=== PATIENT | female | born 1970 | race African-American/Black ===

== ENCOUNTER 2020-05-09 22:36 | Observation (INO) | payer OTHER ==
--- OUTSIDE RECORDS SUMMARY | 2020-05-09 23:05 | XMS ---
:1970 Author Organization [facility] Support Name Relationship Address Phone [employer] Unavailable [address] [place] [address] CHRIS COLÓN MOTHER [address] [place] [address] Re-disclosure Warning The records that you are about to access may contain information from federally- assisted alcohol or drug abuse programs. If such information is present, then the following federally mandated warning applies: This information has been disclosed to you from records protected by federal confidentiality rules (42 CFR part 2). The federal rules prohibit you from making any further disclosure of this information unless further disclosure is expressly permitted by the written consent of the person to whom it pertains or as otherwise permitted by 42 CFR part 2. A general authorization for the release of medical or other information is NOT sufficient for this purpose. The Federal rules restrict any use of the information to criminally investigate or prosecute any alcohol or drug abuse patient.The records that you are about to access may contain highly sensitive health information, the redisclosure of which is protected by Article 27-F of the [facility] Public Health law. If you continue you may haveaccess to information: Regarding HIV / AIDS; Provided by facilities licensed or operated by the [facility] Office of Mental Health; or Provided by the [facility] Office for People With Developmental Disabilities. If such information is present, then the following [facility] mandated warning applies: This information has been disclosed to you from confidential records which are protected by state law. State law prohibits you from making any further disclosure of this information without the specific written consent of the person to whom it pertains, or as otherwise permitted by law. Any unauthorized further disclosure in violation of state law may result in a fine or nursing home sentence or both. A general authorization for the release of medical or other information is NOT sufficient authorization for further disclosure. Insurance Providers Payer name Policy type Policy ID Covered Covered republican's Policy P anne / Coverage republican ID relationship to [employer] Inf ormation type zay[employer] HEALTH [id number] FIRST
--- NOTE | 2020-05-09 23:10 | PDOC ---
History of Present Illness - General Chief Complaint: Chest Pain Stated Complaint: CHEST PAIN Time Seen by Provider: 05/09/20 23:10 - History of Present Illness Initial Comments: HPI: 49yo F with PMH of DM, HLD presenting with chest pain, palpitations, and shortness of breath since last night. Patient describes the pain as "throbbing." It is constant and non-radiating. Patient endorses associated shortness of breath, but no nausea, vomiting, or diaphoresis. Her symptoms worsen with exertion such as when she goes up some stairs. Has felt this way intermittently x 1 year. No personal or family history of OH. Nonsmoker. Was evaluated with a holter monitor in December 2019 and was started on metoprolol which she has not been taking (believing it made her palpitations before). Patient is not sure why she was started on this medication, but it was possibly for tachycardia. Denies syncope or fall. No hemoptysis, no recent surgical history, no recent immobilization, no hormone use, no history of DVT or PE. Denies fever or chills. PCP: Dr. Nereyda Evans Cardio: Dr. Maloney ([facility] with [facility]) ROS: Constitutional: no fever, no chills HEENT: no throat pain, no dysphagia Cardiovascular: +chest pain, +palpitations Respiratory: no cough, +shortness of breath Gastrointestinal: no abdominal pain, no nausea Genitourinary: no dysuria, no hematuria Musculoskeletal: no myalgia, no arthralgia Skin: no rash, no itching Neurologic: no headache, no weakness Psych: no agitation, no anxiety PE: General: Awake, alert, and fully oriented, in no acute distress Head: No signs of trauma Eyes: EOMI, sclera anicteric ENT: Moist mucus membranes Neck: Normal ROM, supple Lungs: Lungs clear, Normal breath sounds Cardio: Regular rhythm, S1 and S2 present Abdomen: Soft, nontender Extremities: Normal range of motion, Distal pulses present, No calf tenderness Skin: Warm, Dry, normal turgor Neurologic: Cranial nerves II through XII grossly intact. Normal speech ED Course/MDM: DDX including but not limited to COVID-19, ACS, PE, PNA, anemia, metabolic derangement Labs, EKG, CXR EKG: rate 100, QTc 433, NSR, flattened twaves in V5-V6, no prior EKGs available for comparison 05/09/20 23:10 CBC WBC 8.3 K/mm3 (4.0-10.0) 05/09/20 23:36 RBC 4.90 M/mm3 (3.60-5.2) 05/09/20 23:36 Hgb 14.5 GM/dL (10.7-15.3) 05/09/20 23:36 Hct 42.6 % (32.4-45.2) 05/09/20 23:36 MCV 86.9 fl (80-96) 05/09/20 23:36 MCH 29.5 pg (25.7-33.7) 05/09/20 23:36 MCHC 33.9 g/dl (32.0-36.0) 05/09/20 23:36 RDW 13.6 % (11.6-15.6) 05/09/20 23:36 Plt Count 251 K/MM3 (134-434) 05/09/20 23:36 MPV 10.0 fl (7.5-11.1) 05/09/20 23:36 Absolute Neuts (auto) 4.3 K/mm3 (1.5-8.0) 05/09/20 23:36 Neutrophils % 51.7 % (42.8-82.8) 05/09/20 23:36 Lymphocytes % 39.2 % (8-40) 05/09/20 23:36 Monocytes % 8.1 % (3.8-10.2) 05/09/20 23:36 Eosinophils % 0.2 % (0-4.5) 05/09/20 23:36 Basophils % 0.8 % (0-2.0) 05/09/20 23:36 Nucleated RBC % 0 % (0-0) 05/09/20 23:36 No leukocytosis or anemia CMP Sodium 138 mmol/L (136-145) 05/09/20 23:50 Potassium 4.1 mmol/L (3.5-5.1) 05/09/20 23:50 Chloride 104 mmol/L (98-107) 05/09/20 23:50 Carbon Dioxide 22 mmol/L (21-32) 05/09/20 23:50 Anion Gap 12 MMOL/L (8-16) 05/09/20 23:50 BUN 16.0 mg/dL (7-18) 05/09/20 23:50 Creatinine 0.9 mg/dL (0.55-1.3) 05/09/20 23:50 Est GFR (CKD-EPI)AfAm 87.63 05/09/20 23:50 Est GFR (CKD-EPI)NonAf 75.61 05/09/20 23:50 Random Glucose 226 mg/dL (74-106) H 05/09/20 23:50 Calcium 9.7 mg/dL (8.5-10.1) 05/09/20 23:50 Total Bilirubin 0.8 mg/dL (0.2-1) 05/09/20 23:50 AST 37 U/L (15-37) 05/09/20 23:50 ALT 46 U/L (13-61) 05/09/20 23:50 Alkaline Phosphatase 92 U/L (45-117) 05/09/20 23:50 Creatine Kinase 80 U/L (26-192) 05/09/20 23:50 Troponin I < 0.02 ng/ml (0.00-0.05) 05/09/20 23:50 Total Protein 7.6 g/dl (6.4-8.2) 05/09/20 23:50 Albumin 3.9 g/dl (3.4-5.0) 05/09/20 23:50 Electrolytes unremarkable Normal Cr No transaminitis Tpn undetectable CXR unremarkable, my impression 05/10/20 01:28 Plan for admission; observation is appropriate as patient with suspected cardiac ischemia with nondiagnostic initial evaluation requiring further immediate ev aluation such as stress testing, imaging, and repeat laboratory testing to clarify diagnosis Discussed case with Dr. Story who accepted patient for admission under Dr. Valentino 05/10/20 02:19 Past History - Medical History Allergies/Adverse Reactions: Allergies Allergy/AdvReac Type Severity Reaction Status Date / Time No Known Allergies Allergy Verified 05/09/20 22:46 Cardiac Disorders: Yes (Rapid heart rate) COPD: No Diabetes: Yes HTN: Yes Hypercholesterolemia: Yes - Reproductive History Is Patient Now?: No - Psycho-Social/Smoking History Smoking History: Never smoked - Substance Abuse Hx (Audit-C & DAST Scrn) How often the patient has a drink containing alcohol: Never Score: In Men: 4 or > Positive; In Women: 3 or > Positive: 0 Screen Result (Pos requires Nsg. Audit-10AR): Negative *Physical Exam - Vital Signs Last Vital Signs Temp Pulse Resp BP Pulse Ox 98.7 F 110 H 20 131/89 98 05/09/20 22:40 05/09/20 22:40 05/09/20 22:40 05/09/20 22:40 05/09/20 22:40 Heart Score/ECG Review - History History: Moderately suspicious - Electrocardiogram EKG: Non specific repolarization disturbance - Age Age: 45-65 - Risk Factors Risk Factors Heart Score: Yes Hx Hypercholesterolemia, Yes Hx Diabetes Based on the list above the patient has:: 1-2 risk factors - Troponin Troponin: </= normal limit - Score Heart Score - Total: 4 ED Treatment Course - LABORATORY CBC & Chemistry Diagram: 05/09/20 23:36 05/09/20 23:50 Discharge - Discharge Information Problems reviewed: Yes Clinical Impression/Diagnosis: Chest pain Qualifiers: Chest pain type: unspecified Qualified Code(s): R07.9 - Chest pain, unspecified Condition: Guarded - Admission Yes - Follow up/Referral - Patient Discharge Instructions - Post Discharge Activity
--- NOTE | 2020-05-09 23:14 | PDOC ---
Attending Attestation - Resident Resident Name: Rachel Quintero - ED Attending Attestation I have performed the following: I have examined & evaluated the patient, The case was reviewed & discussed with the resident, I agree w/resident's findings & plan - HPI HPI: 05/09/20 23:46 see resident hpi - Physicial Exam PE: 05/09/20 23:46 see resident exam - Medical Decision Making 05/09/20 23:47 49-year-old female with palpitations and chest pressure intermittently over several months now becoming more steady and worse with exertion Patient does have a history of diabetes and hyperlipidemia Plan for EKG labs chest x-ray pending d-dimer and troponin we will plan for observation admission due to cardiac risk factors Discharge - Discharge Information Problems reviewed: Yes Clinical Impression/Diagnosis: Chest pain - Follow up/Referral Referrals: ON STAFF,NOT [Primary Care Provider] - - Patient Discharge Instructions - Post Discharge Activity
[2020-05-09] MEDS ORDERED: ACETAMINOPHEN 325 MG TABLET (FP) PO ONE (23:37)
[2020-05-09] MEDS ORDERED: NITROGLYCERIN SUBLINGUAL 1/200 0.3 MG BTL SL ONE (23:37)
[2020-05-09] MEDS ORDERED: ACETAMINOPHEN 325 MG TABLET (FP) ONE (23:45)
[2020-05-10 00:32] LABS: BASO % 0.8 % (0-2.0); EOS % 0.2 % (0-4.5); HEMATOCRIT 42.6 % (32.4-45.2); HEMOGLOBIN 14.5 GM/dL (10.7-15.3); LYMPH % 39.2 % (8-40); MCH 29.5 pg (25.7-33.7); MCHC 33.9 g/dl (32.0-36.0); MEAN CELL VOLUME 86.9 fl (80-96); MONO % 8.1 % (3.8-10.2); NEUT % 51.7 % (42.8-82.8); PLATELET COUNT 251 K/MM3 (134-434); RDW 13.6 % (11.6-15.6); WHITE BLOOD COUNT 8.3 K/mm3 (4.0-10.0)
[2020-05-10 00:57] LABS: ALBUMIN 3.9 g/dl (3.4-5.0); ALK PHOS 92 U/L (45-117); ANION GAP 12 MMOL/L (8-16); BILIRUBIN,TOTAL 0.8 mg/dL (0.2-1); CALCIUM 9.7 mg/dL (8.5-10.1); CHLORIDE 104 mmol/L (98-107); CO2 22 mmol/L (21-32); CREATININE 0.9 mg/dL (0.55-1.3); GLUCOSE,RANDOM 226 mg/dL (74-106); POTASSIUM 4.1 mmol/L (3.5-5.1); SGOT/AST 37 U/L (15-37); SGPT/ALT 46 U/L (13-61); SODIUM 138 mmol/L (136-145); TOT PROT 7.6 g/dl (6.4-8.2)
--- NOTE | 2020-05-10 01:51 | PN ---
Teaching Attending Note Name of Resident: Onofre Story ATTENDING PHYSICIAN STATEMENT I saw and evaluated the patient. I reviewed the resident's note and discussed the case with the resident. I agree with the resident's findings and plan as documented. SUBJECTIVE: Patient is a 49 year old woman with a PMH of NIDDM, HLD and Obesity who presents to the ER with chest pain, palpitations, and shortness of breath since last night. Patient describes the pain as throbbing, constant and non-radiating. There is associated shortness of breath, but no nausea, vomiting, or diaphoresis. Her symptoms worsen with exertion such as when she goes up some stairs. Has felt this way intermittently for 1 year. Had a holter monitor in December 2019 and was started on metoprolol which she has not been taking. Patient is not sure why she was started on Metoprolol. Denies syncope, fall, hemoptysis, recent surgical history, prolonged immobilization, hormone use or history of VTE. Denies fever, chills, diarrhea, constipation, dysuria, frequency, urgency, melena, hematochezia or hematuria. Denies alcohol, tobacco or illicit drug use. No sick contacts or recent travels. Family history of NC in grandfather and aunt, DM in father and HTN in mother. OBJECTIVE: Alert Vital Signs Period Temp Pulse Resp BP Sys/Lomas Pulse Ox Last 24 Hr 98.7 F 98-110 20-20 100-131/70-89 98-98 HEENT: No Jaundice, eye redness or discharge, PERRLA, EOMI. Normocephalic, atraumatic. External ears are normal and hearing is grossly intact. No nasal discharge. Neck: Supple, nontender. No palpable adenopathy or thyromegaly. No JVD Chest: Good effort. Clear to auscultation and percussion. Heart: Regular. No S3, rub or murmur Abdomen: Not distended, soft, nontender and no HSM. No rebound or guarding. Normal bowel sounds. Ext: Peripheral pulses intact. No leg edema. Skin: Warm and dry. No petechiae, rash or ecchymosis. Neuro: Alert. Oriented x3. CN 2-12 grossly intact. Sensation grossly intact in all four extremities and DTR are symmetric. Psych: Appropriate mood and affect. Good insight. Abnormal Lab Results 05/09/20 23:50 Random Glucose 226 H Current Medications Generic Name Dose Route Start Last Admin Trade Name Michelle PRN Reason Stop Dose Admin Enoxaparin Sodium 40 mg 05/10/20 10:00 Lovenox - SQ DAILY [facility] Insulin Aspart 0 vial 05/10/20 07:00 Novolog Vial Sliding Scale - SQ ACHS [facility] Protocol ASSESSMENT AND PLAN: 1. Chest pain - No acute abnormality on CXR. ER staff prescribed Tylenol and SL NTG for the patient. EKG shows NSR at 100/minute and QTc 433, T wave inversion in aVL with no ischemic ST changes. No old EKG available for comparison. Initial troponin is negative. Viral testing for COVID-19 ordered and patient placed on airborne, droplet and contact isolation. Will admit to telemetry, trend troponin, repeat EKG, get ECHO, TSH, HbA1c, fasting lipids and consult Cardiology. Will continue comprehensive care for all of patients comorbid conditions. 2. DM For now, we will hold the home diabetes drugs and implement sliding scale insulin regimen. Provide comprehensive diabetes care with patient teaching and counseling about the importance of adherence to prescribed diabetes regimen, euglycemia, eye care and foot care. 3. Obesity Counseled on the risks associated with obesity. Will provide patient all the necessary assistance, counseling and positive reinforcement to facilitate weight loss. Consult acrobatic dancer. 4. DVT prophylaxis - Lovenox 40 mg SQ q 24 hours. 5. Advance directives - Full code
--- OUTSIDE RECORDS SUMMARY | 2020-05-10 02:24 | XMS ---
:1970 Author Organization [facility] Support Name Relationship Address Phone [employer] Unavailable [address] [phone] [place] [address] CHRIS COLÓN MOTHER [address] [place] [address] Re-disclosure Warning The records that you are [...] is protected by Article 27-F of the [facility] Public Health law. If you continue you may haveaccess to information: Regarding HIV / AIDS; Provided by facilities licensed or operated by the [facility] Office of Mental Health; or Provided by the [facility] Office for People With Developmental Disabilities. If such information is present, then the following [facility] mandated warning applies: This information has been [...] law may result in a fine or half-way sentence or both. A general authorization for the release of medical or other information is NOT sufficient authorization for further disclosure. Insurance Providers Payer name Policy type Policy ID Covered Covered constitution party's Policy P anne / Coverage constitution party ID relationship to [employer] Inf ormation type [employer] HEALTH [id number] FIRST
--- NOTE | 2020-05-10 04:32 | HP ---
CHIEF COMPLAINT: chest pain PCP: HISTORY OF PRESENT ILLNESS: 49F w/ pmh of NIDM, HLD BIBA to [facility] for complaint of sticking pain, felt like squeezing pressure in the deep chest pain with associated palpitaitons. Had sensation after bible study at 8pm. Chest pain improved after acetaminophen administration in the ED. Has had palpitations in the past. For the palpitations, had outpt cardiology evaluation for the first time this past November-December w/ Dr Francis([facility]). Thinks her Echo had an abnormality; got a Holter but doesn't recall those results. Was prescribed metoprolol tartrate, but stopped taking d/t the belief that palpitations go worse. Pt has been having chest pressure, SOB, and feeling winded this past year with exertional activities. 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 Resolution of symptoms after 20mins of rest. Pior to 2016, pt used to regularly exercise in the gym, walking on the elliptical machines. Thinks her HbA1c was 10.4 in October 2019. Sometimes has acid reflux, bloating burning sensation a few mins after eating; sometimes a bitter taste in the throat. Will sleep with two pillows and mary bear; will have sensation cant breathe; might have sleep apnea(was told by ex- that she stopped breathing). Denies h/o [place], stroke. ER course was notable for: -Tmax 98.7F, HR 110 -->98, BP 131/89 -HEART 4 -EKG: rate 100, QTc 433, NSR, flattened twaves in V5-V6 -acetaminophen 975mg Recent Travel: denies PAST MEDICAL HISTORY: as above PAST SURGICAL HISTORY: myometocmy, then eventual hysterectomy(2016) Social History: Smoking: denies Alcohol: tried beer once or twice Drugs: denies Allergies No Known Allergies Allergy (Verified 05/09/20 22:46) HOME MEDICATIONS: REVIEW OF SYSTEMS CONSTITUTIONAL: Absent: fever, chills, diaphoresis, generalized weakness, malaise, loss of appetite, weight change HEENT: Absent: rhinorrhea, nasal congestion, throat pain, throat swelling, difficulty swallowing, mouth swelling, ear pain, eye pain, visual changes CARDIOVASCULAR: chest pain, palpitations, Absent: syncope, irregular heart rate, lightheadedness, peripheral edema RESPIRATORY: dyspnea with exertion, orthopnea, Absent: cough, shortness of breath,wheezing, stridor, hemoptysis GASTROINTESTINAL: Absent: abdominal pain, abdominal distension, nausea, vomiting, diarrhea, constipation, melena, hematochezia GENITOURINARY: Absent: dysuria, frequency, urgency, hesitancy, hematuria, flank pain, genital pain MUSCULOSKELETAL: Absent: myalgia, arthralgia, joint swelling, back pain, neck pain SKIN: Absent: rash, itching, pallor HEMATOLOGIC/IMMUNOLOGIC: Absent: easy bleeding, easy bruising, lymphadenopathy, frequent infections ENDOCRINE: Absent: unexplained weight gain, unexplained weight loss, heat intolerance, cold intolerance NEUROLOGIC: Absent: headache, focal weakness or paresthesias, dizziness, unsteady gait, seizure, mental status changes, bladder or bowel incontinence PSYCHIATRIC: Absent: anxiety, depression, suicidal or homicidal ideation, hallucinations. PHYSICAL EXAMINATION Vital Signs - 24 hr 05/09/20 05/10/20 22:40 00:01 Temperature 98.7 F Pulse Rate 110 H Pulse Rate [ 98 H Apical] Respiratory 20 20 Rate Blood Pressure 131/89 Blood Pressure 100/70 [Left Arm] O2 Sat by Pulse 98 98 Oximetry (%) GENERAL: Awake, alert, and fully oriented, in no acute distress. Obese HEAD: NC/AT EYES: anicteric, conjunctiva clear. No lid lag. EARS, NOSE, THROAT: Ears normal, nares patent, oropharynx clear without exudates. Moist mucous membranes. NECK: Normal range of motion, supple without lymphadenopathy, JVD, or masses. LUNGS: Breath sounds equal, clear to auscultation bilaterally. No wheezes, and no crackles. HEART: elevated heart rate, normal rhythm, normal S1 and S2 without murmur, rub or gallop. ABDOMEN: Soft, nontender, not distended, no guarding, no rebound MUSCULOSKELETAL: Normal range of motion at all joints. UPPER EXTREMITIES: 2+ pulses, warm, well-perfused. No cyanosis. No clubbing. No peripheral edema. LOWER EXTREMITIES: 2+ pulses, warm, well-perfused. No calf tenderness. No peripheral edema. NEUROLOGICAL: Cranial nerves II-XII intact. Normal speech. SKIN: Warm, dry, normal turgor, no rashes or lesions noted, normal capillary refill. Laboratory Results - last 24 hr 0905/09/20 05/10/20 23:36 23:50 00:00 WBC 8.3 RBC 4.90 Hgb 14.5 Hct 42.6 MCV 86.9 MCH 29.5 MCHC 33.9 RDW 13.6 Plt Count 251 MPV 10.0 Absolute Neuts (auto) 4.3 Neutrophils % 51.7 Lymphocytes % 39.2 Monocytes % 8.1 Eosinophils % 0.2 Basophils % 0.8 Nucleated RBC % 0 D-Dimer 318 Sodium 138 Potassium 4.1 Chloride 104 Carbon Dioxide 22 Anion Gap 12 BUN 16.0 Creatinine 0.9 Est GFR (CKD-EPI)AfAm 87.63 Est GFR (CKD-EPI)NonAf 75.61 Random Glucose 226 H Calcium 9.7 Total Bilirubin 0.8 AST 37 ALT 46 Alkaline Phosphatase 92 Creatine Kinase 80 Troponin I < 0.02 Total Protein 7.6 Albumin 3.9 ASSESSMENT/PLAN: 49F w/ pmh of NIDM, HLD BIBA to [facility] for complaint of sticking pain, felt like squeezing pressure in the deep chest pain with associated palpitations. Pain improved after acetaminophen. EKG with no ST abnormalities. No prior EKG for comparison. Troponin neg. HEART 4. ED wanted admission to Tele-Obs for ACS r/o. #chest pain, ACS r/o > HEART 4 > EKG: no ST abnormalities, QTc 433 > troponin neg x1 --fu 2nd and 3rd troponin - Cardiology Consult(Kyle): --recs pending --echo, TBD by cardio - fu TSH, lipid panel, TSH #chronic HLD -cw home simvastatin #chronic NIDDM -ISS FEN - no IVF - NPO, in case of stress test DVT PPX - lovenox Family Medical History Family History: As Documented Family Hx Cardiac Disorders: Mother (HTN) Family Hx Coronary Artery Disease: Grandfather (paternal) ([place]) Family Hx Diabetes: Father Visit type - Emergency Visit Emergency Visit: Yes ED Registration Date: 05/10/20 Care time: The patient presented to the Emergency Department on the above date and was hospitalized for further evaluation of their emergent condition. - New Patient This patient is new to me today: Yes Date on this admission: 05/10/20 - Critical Care Critical Care patient: No ATTENDING PHYSICIAN STATEMENT I saw and evaluated the patient. I reviewed the resident's note and discussed the case with the resident. I agree with the resident's findings and plan as documented. SUBJECTIVE: OBJECTIVE: ASSESSMENT AND PLAN:
[2020-05-10 08:04] LABS: ANION GAP 7 MMOL/L (8-16); CALCIUM 9.5 mg/dL (8.5-10.1); CHLORIDE 104 mmol/L (98-107); CHOLESTEROL 122 mg/dL (50-200); CO2 27 mmol/L (21-32); CREATININE 0.8 mg/dL (0.55-1.3); GLUCOSE,RANDOM 186 mg/dL (74-106); HDL CHOLESTEROL 40 mg/dL (40-60); LDL CHOLESTEROL (ONLY SJRH) 64 mg/dL (5-100); MAGNESIUM 1.7 mg/dL (1.8-2.4); PHOSPHOROUS 4.2 mg/dL (2.5-4.9); SODIUM 138 mmol/L (136-145); TRIGLYCERIDES 170 mg/dL (0-150)
[2020-05-10] MEDS: INSULIN SLIDING SCALE (NOVOLOG) 1 VIAL SQ SCH ×4 (08:12→21:34)
--- NOTE | 2020-05-10 09:03 | EKG ---
Test Reason : Blood Pressure : / mmHG Vent. Rate : 100 BPM Atrial Rate : 100 BPM P-R Int : 138 ms QRS Dur : 084 ms QT Int : 336 ms P-R-T Axes : 063 012 070 degrees QTc Int : 433 ms NORMAL SINUS RHYTHM NONSPECIFIC T WAVE ABNORMALITY ABNORMAL ECG NO PREVIOUS ECGS AVAILABLE Confirmed by MD NICHO, MURRAY ([id number]) on 05/10/2020 9:03:23 AM Referred By: Confirmed By:MURRAY TORRE MD
--- NOTE | 2020-05-10 09:40 | CON.CARD ---
Consult Consult Specialty:: Cardiology Referred by:: Dr. Valentino Reason for Consultation:: Chest pain, ACS - History of Present Illness Chief Complaint: Chest pain and palpitation History of Present Illness: 49 year-old woman with a PMHx of DM-II and hyperlipidemia presented to ED 05/09/20 with chest pain. The patient complains of sticking pain, felt like squeezing pressure in the deep chest pain with associated palpitaitons. Chest pain improved after acetaminophen administration in the ED. She was seen by Dr. Maloney in November 2019 for evaluation of palpitation. Her echo and extended holter monitor were unremarkable (see below). She was prescribed metoprolol tartrate, but self discontined. Pt has been having chest pressure, SOB, and feeling winded this past year with exertional activities. 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 Resolution of symptoms after 20mins of rest. [place] ruled out. ECG 05/09/20 showed sinus rhythm at 100 BPM. Normal axis. Minor non-specific T wave abnormalities of lateral leads. CXR 05/09/20 no acute pathology. Previous cardiac tests at [facility]: Echo 12/21/2019: Normal LV size with DUST. Normal wall motion and systolic function. LVEF = 60-65%. Normal RV. Normal LA and RA in size. No significant valvular abnormalities. Extended Holter Monitor 12/29/19 to 01/02/20: Sinus rhythm with an average HR of 94 BPM (74-138 BPM) Occasional single VPCs and rare APCs. No bradycardia or pauses. - History Source History Provided By: Patient, Medical Record Limitations to Obtaining History: No Limitations - Past Medical History Cardio/Vascular: Yes: Hyperlipdemia ...LMP: 05/09/16 ...: No Endocrine: Yes: Diabetes Mellitus - Smoking History Smoking history: Never smoked Home Medications - Allergies Allergies/Adverse Reactions: Allergies Allergy/AdvReac Type Severity Reaction Status Date / Time No Known Allergies Allergy Verified 05/09/20 22:46 - Home Medications Home Medications: Ambulatory Orders Aspirin 81 mg PO DAILY 05/10/20 Atorvastatin Ca [Lipitor] 20 mg PO HS 05/10/20 Liraglutide [Victoza -] 1.8 mg SQ DAILY@0700 05/10/20 Metformin HCl [Glucophage] 1,000 mg PO BID 05/10/20 Family Medical History Family Hx Cardiac Disorders: Mother (HTN) Family Hx Coronary Artery Disease: Grandfather (paternal) ([place]) Family Hx Diabetes: Father Review of Systems - Review of Systems Constitutional: reports: No Symptoms Eyes: reports: No Symptoms HENT: reports: No Symptoms Neck: reports: No Symptoms Cardiovascular: reports: Chest Pain, Palpitations Respiratory: reports: No Symptoms Gastrointestinal: reports: No Symptoms Genitourinary: reports: No Symptoms Breasts: reports: No Symptoms Reported Musculoskeletal: reports: No Symptoms Integumentary: reports: No Symptoms Neurological: reports: No Symptoms Endocrine: reports: No Symptoms Hematology/Lymphatic: reports: No Symptoms Psychiatric: reports: No Symptoms Vital Signs: Vital Signs Temperature 97.3 F L 05/10/20 06:37 Pulse Rate 80 05/10/20 09:00 Respiratory Rate 18 05/10/20 09:00 Blood Pressure 123/81 05/10/20 09:00 O2 Sat by Pulse Oximetry (%) 97 05/10/20 09:00 General: Well developed. Obese. No acute distress. Head: Normocephalic. Atraumatic, Eyes: PERRLA, EOMI. Sclerae anicteric. Conjunctivae clear. Neck: Supple. No JVD. No bruits. Heart: Normal S1, S2: Regular rhythm and rate. No murmur. No gallop or rub. Lungs: Symmetrical air entry. Clear to auscultation. No crackles. No wheezing or rhonchi. Abdomen: Soft. Bowel sound positive. Non tender. No masses. Extremities: No edema. No clubbing or cyanosis. PD 2+, equal bilaterally. Neuro: Intact, no focal findings. AAO X3 - Other Data Labs, Other Data: CBC, BMP 05/09/20 23:36 05/10/20 06:52 Troponin, BNP 05/09/20 05/10/20 23:50 06:52 Troponin I < 0.02 < 0.02 Troponin, BNP 05/09/20 05/10/20 23:50 06:52 Troponin I < 0.02 < 0.02 Assessment/Plan 49 year-old woman with a PMHx of DM-II and hyperlipidemia presented to ED 05/09/20 with chest pain. The patient complains of sticking pain, felt like squeezing pressure in the deep chest pain with associated palpitaitons. Chest pain improved after acetaminophen administration in the ED. [place] ruled out. ECG 05/09/20 showed sinus rhythm at 100 BPM. Normal axis. Minor non-specific T wave abnormalities of lateral leads. CXR 05/09/20 no acute pathology. 1) New onset, predominantly exertional angina with risk factors of CAD. Intermediate likelihood of significant CAD. Treadmill exercise nuclear stress test recommended for further risk stratification. 2) Palpitation with elevated resting heart rate. Had unremarkable extended holter monitor in December 2019. Start metoprolol succinate 50 mg daily for symptom of palpitation. We will follow the patient with you.
[2020-05-10] MEDS ORDERED: ENOXAPARIN NA (PORCINE) 40 MG/0.4 ML DISP.SYRIN SQ SCH (10:00)
[2020-05-10] MEDS: ASPIRIN 81 MG CHEWABLE TABLETS PO SCH (11:15)
--- NOTE | 2020-05-10 11:28 | ECHO ---
Name: BRAEDENELIU Exam:Adult Echocardiogram Study Date: 05/10/2020 09:10 AM Age: 49 yrs Reason For Study: Tachycardia, Chest Pressure Height: 62 in Weight: 218 lb BSA: 2.0 m2 MMode/2D Measurements & Calculations IVSd: 0.99 cm Ao root diam: 3.1 cm LVIDd: 3.7 cm LA dimension: 2.1 cm LVIDs: 2.4 cm ACS: 1.8 cm LVPWd: 1.0 cm EDV(Teich): 59.0 ml LVOT diam: 1.9 cm ESV(Teich): 20.4 ml LAV (MOD-bp): 23.0 ml TAPSE: 2.1 cm RV S Wilfredo: 11.1 cm/sec Doppler Measurements & Calculations MV E max wilfredo: 66.9 cm/sec Ao V2 max: 124.9 cm/sec MV A max wilfredo: 69.1 cm/sec Ao max P.2 mmHg MV E/A: 0.97 Ao V2 mean: 84.6 cm/sec MV dec time: 0.20 sec Ao mean P.2 mmHg Ao V2 VTI: 22.0 cm BIRGIT(I,D): 3.1 cm2 BIRGIT(V,D): 2.9 cm2 LV V1 max P.0 mmHg SV(LVOT): 67.9 ml LV V1 mean P.7 mmHg LV V1 max: 122.3 cm/sec LV V1 mean: 74.0 cm/sec LV V1 VTI: 22.9 cm PA V2 max: 84.2 cm/sec Med Peak E' Wilfredo: 5.6 cm/sec PA max P.8 mmHg Med E/e': 12.0 PA acc slope: 441.2 cm/sec2 Lat Peak E' Wilfredo: 6.7 cm/sec PA acc time: 0.12 sec Lat E/e': 9.9 PA pr(Accel): 25.1 mmHg Tech Comments TDS due to body habitus. Procedure The study was technically difficult with many images being suboptimal in quality. Left Ventricle The left ventricle is grossly normal size. Left ventricular systolic function is normal. Ejection Fra ction = 65%. The transmitral spectral Doppler flow pattern is suggestive of impaired LV relaxation. Right Ventricle The right ventricle is not well visualized. Atria Normal left and right atrial size and function. Mitral Valve The mitral valve is grossly normal. Tricuspid Valve The tricuspid valve is not well visualized. There was insufficient TR detected to calculate RV systol ic pressure. Aortic Valve The aortic valve is not well visualized. No hemodynamically significant valvular aortic stenosis. Pulmonic Valve The pulmonic valve is not well visualized. Great Vessels The aortic root is not well visualized. Pericardium/Pleura There is no pericardial effusion. Interpretation Summary The study was technically difficult with many images being suboptimal in quality. The left ventricle is grossly normal size. Left ventricular systolic function is normal. Ejection Fra ction = 65%. The right ventricle is not well visualized. Normal left and right atrial size and function. The aortic valve is not well visualized. No hemodynamically significant valvular aortic stenosis. The mitral valve is grossly normal. MD Vicky Forrest 05/10/2020 11:27 AM
[2020-05-10] MEDS ORDERED: ASPIRIN 81 MG CHEWABLE TABLETS ONE (11:31)
[2020-05-10] MEDS ORDERED: ENOXAPARIN NA (PORCINE) 40 MG/0.4 ML DISP.SYRIN SQ ONE (11:31)
[2020-05-10 14:31] VITALS: BMI 39.2
--- NOTE | 2020-05-10 15:12 | PN ---
Physical Exam: SUBJECTIVE: Patient seen and examined at bedside. No acute events reported overnight. OBJECTIVE: Vital Signs Period Temp Pulse Resp BP Sys/Lomas Pulse Ox Last 24 Hr 97.3 F-98.7 F 80-110 17-20 100-131/63-89 97-100 GENERAL: AAOx3, in no acute distress HEENT: NCAT, PERRLA, EOMI, sclera anicteric, conjunctiva clear, oropharynx clear w/o exudates. MMM. NECK: Normal ROM, supple, no lymphadenopathy, JVD, or masses LUNGS: CTABL no wheezes/ rhonchi/ rales. No distress, speaks in full sentences. No increased work of breathing. HEART: RRR, normal S1 S2, no M/R/G, peripheral pulses 2+ and equal b/l ABDOMEN: Soft, NTND, + BS. No guarding or rebound. No hepatomegaly or splenomegaly. MSK: ROM WNL EXTREMITIES: Normal inspection. No peripheral edema. No clubbing or cyanosis. NEUROLOGICAL: CN II-XII intact. Normal speech, normal gait, no focal sensorimotor deficits. SKIN: Warm, Dry, normal turgor, no rashes or lesions noted Laboratory Results - last 24 hr CBC, BMP 05/09/20 23:36 05/10/20 06:52 05/09/20 05/09/20 05/10/20 23:36 23:50 00:00 WBC 8.3 RBC 4.90 Hgb 14.5 Hct 42.6 MCV 86.9 MCH 29.5 MCHC 33.9 RDW 13.6 Plt Count 251 MPV 10.0 Absolute Neuts (auto) 4.3 Neutrophils % 51.7 Lymphocytes % 39.2 Monocytes % 8.1 Eosinophils % 0.2 Basophils % 0.8 Nucleated RBC % 0 D-Dimer 318 Sodium 138 Potassium 4.1 Chloride 104 Carbon Dioxide 22 Anion Gap 12 BUN 16.0 Creatinine 0.9 Est GFR (CKD-EPI)AfAm 87.63 Est GFR (CKD-EPI)NonAf 75.61 POC Glucometer Random Glucose 226 H Calcium 9.7 Phosphorus Magnesium Total Bilirubin 0.8 AST 37 ALT 46 Alkaline Phosphatase 92 Creatine Kinase 80 Troponin I < 0.02 Total Protein 7.6 Albumin 3.9 Triglycerides Cholesterol Total LDL Cholesterol HDL Cholesterol TSH 05/10/20 05/10/20 05/10/20 06:52 07:20 12:40 WBC RBC Hgb Hct MCV MCH MCHC RDW Plt Count MPV Absolute Neuts (auto) Neutrophils % Lymphocytes % Monocytes % Eosinophils % Basophils % Nucleated RBC % D-Dimer Sodium 138 Potassium 4.0 Chloride 104 Carbon Dioxide 27 Anion Gap 7 L BUN 16.0 Creatinine 0.8 Est GFR (CKD-EPI)AfAm 101.04 Est GFR (CKD-EPI)NonAf 87.18 POC Glucometer 179 Random Glucose 186 H Calcium 9.5 Phosphorus 4.2 Magnesium 1.7 L Total Bilirubin AST ALT Alkaline Phosphatase Creatine Kinase 76 Troponin I < 0.02 < 0.02 Total Protein Albumin Triglycerides 170 H Cholesterol 122 Total LDL Cholesterol 64 HDL Cholesterol 40 TSH 4.37 H Active Medications Generic Name Dose Route Start Last Admin Trade Name Freq PRN Reason Stop Dose Admin Aspirin 81 mg 05/10/20 10:00 05/10/20 11:15 Asa - PO 81 mg DAILY LORENZO Administration Atorvastatin Calcium 20 mg 05/10/20 22:00 Lipitor - PO HS LORENZO Enoxaparin Sodium 40 mg 05/10/20 10:00 05/10/20 11:15 Lovenox - SQ 40 mg DAILY LORENZO Administration Insulin Aspart 1 vial 05/10/20 07:00 05/10/20 13:16 Novolog Vial Sliding Scale - SQ 6 units ACHS LORENZO Administration Protocol Metoprolol Succinate 50 mg 05/10/20 12:45 Toprol Xl - PO DAILY [facility] ASSESSMENT/PLAN: 49F w/ PMX of NIDM, HLD BIBA to [facility] for complaint of chest pain that felt like squeezing pressure deep in the chest with associated palpitations. Pain improved after acetaminophen. EKG with no ST abnormalities. Admitted to tele observation for further evaluation of chest pain. #Chest Pain - HEART 4 -EKG: no ST abnormalities, QTc 433 -troponin neg x3 -echo: LV normal in size, LVEF=65%. RV not well visualized. normal LA and RA size/function. Aortic valve not visualized. MV grossly normal. -Cardio Consult: start Metoprolol Succinate 50 mg Daily and nuclear stress test -nuclear stress test tomorrow pending negative COVID test and negative test -continue Aspirin #HLD -c/w home simvastatin #Diabetes Mellitus -ISS w/ BGM #FEN - no IVF -monitor lytes, replete PRN - Diabetic diet; NPO at midnight for stress tomorrow #PPX - DVT: lovenox dispo: continue tele observation Visit type - Emergency Visit Emergency Visit: No - New Patient This patient is new to me today: Yes Date on this admission: 05/10/20 - Critical Care Critical Care patient: No - Discharge Referral Referred to [facility] Med P.C.: No ATTENDING PHYSICIAN STATEMENT I saw and evaluated the patient. I reviewed the resident's note and discussed the case with the resident. I agree with the resident's findings and plan as documented. SUBJECTIVE: OBJECTIVE: ASSESSMENT AND PLAN:
--- NOTE | 2020-05-10 16:54 | PN ---
Teaching Attending Note Name of Resident: Onelia Garcia ATTENDING PHYSICIAN STATEMENT I saw and evaluated the patient. I reviewed the resident's note and discussed the case with the resident. I agree with the resident's findings and plan as documented. SUBJECTIVE: seen at 1 pm No fever or chills. Cp is better . denies SOB . 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, and not sure if a stress test was done or not . palpitation hx for which she dews not remember the diagnosis but she was prescribed metoprolol that she stopped taking after the first week . CP started 2 days ago, was severe yesterday and now better . 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 pain usually resolves with rest for few min . she takes asa daily since she was diagnosed with DM OBJECTIVE: NAD CV: RRR, no MRG Lungs: CTAB Ext : No edema or erythema MS: TTP in mid sternal area ASSESSMENT AND PLAN: 49 y/o lady with h/o DM, and palpitations, who presented with CP 1- CP: prolonged, improved, negative trop, EKG with sinus rhythm. she for sure has sig risk factors. but this prolonged cp might not be ACS. - stress test . - need neg covid and - cont Asa - cont toprol. ( not taking home lopressor ) 2- h/o Dm : start SSI . hold metformin 3- palpitations. cont toprol will try to get records form dr. little office regarding previous cardiac w/u . Unsuccessful today
[2020-05-10] MEDS ORDERED: ATORVASTATIN CA 20 MG TABLET (FP) PO SCH (22:00)
[2020-05-11] MEDS ORDERED: MELATONIN 5 MG TABLETS PO ONE (01:11)
[2020-05-11] MEDS: INSULIN SLIDING SCALE (NOVOLOG) 1 VIAL SQ SCH ×2 (06:16→12:32)
[2020-05-11 07:43] LABS: BASO % 0.8 % (0-2.0); EOS % 1.4 % (0-4.5); HEMATOCRIT 37.5 % (32.4-45.2); HEMOGLOBIN 12.6 GM/dL (10.7-15.3); LYMPH % 53.4 % (8-40); MCH 29.1 pg (25.7-33.7); MCHC 33.6 g/dl (32.0-36.0); MEAN CELL VOLUME 86.5 fl (80-96); MEAN PLT VOLUME 9.4 fl (7.5-11.1); MONO % 9.4 % (3.8-10.2); PLATELET COUNT 213 K/MM3 (134-434); RBC 4.33 M/mm3 (3.60-5.2); RDW 13.7 % (11.6-15.6); WHITE BLOOD COUNT 6.9 K/mm3 (4.0-10.0)
[2020-05-11 08:15] LABS: ANION GAP 7 MMOL/L (8-16); BLOOD UREA NITROGEN 10.1 mg/dL (7-18); CALCIUM 9.4 mg/dL (8.5-10.1); CHLORIDE 104 mmol/L (98-107); CO2 26 mmol/L (21-32); CREATININE 0.6 mg/dL (0.55-1.3); GLUCOSE,RANDOM 185 mg/dL (74-106); POTASSIUM 3.5 mmol/L (3.5-5.1); SODIUM 137 mmol/L (136-145)
[2020-05-11] MEDS: ASPIRIN 81 MG CHEWABLE TABLETS PO SCH (09:27)
--- NOTE | 2020-05-11 14:57 | PN ---
Progress Note, Physician Chief Complaint: The patient appears comfortable at the time of exam. She reports no recurrent chest pain. But she has intermittent palpitation. Telemetry reviewed, it showed sinus rhythm with episodes of sinus tachycardia, up to 120s and frequent single VPCs. History of Present Illness: 49 year-old woman with a PMHx of DM-II and hyperlipidemia presented to ED 05/09/20 with chest pain. The patient complains of sticking pain, felt like squeezing pressure in the deep chest pain with associated palpitaitons. Chest pain improved after acetaminophen administration in the ED. [place] ruled out. ECG 05/09/20 showed sinus rhythm at 100 BPM. Normal axis. Minor non-specific T wave abnormalities of lateral leads. CXR 05/09/20 no acute pathology. Echo 05/10/20: Normal LV size, wall motion and systolic function. LVEF = 65%. RV is not well visualized. Normal LA and RA in size. No significant valvular abnormalities. Nuclear stress stress test 08/10/20 (preliminary) Normal myocardial perfusion an d normal LV systolic function. - Current Medication List Current Medications: Active Medications Aspirin (Asa -) 81 mg PO DAILY [facility] Last Admin: 05/11/20 09:27 Dose: 81 mg Documented by: Atorvastatin Calcium (Lipitor -) 20 mg PO HS [facility] Last Admin: 05/10/20 21:35 Dose: 20 mg Documented by: Insulin Aspart (Novolog Vial Sliding Scale -) 1 vial SQ [facility]; Protocol Last Admin: 05/11/20 12:32 Dose: 6 units Documented by: Metoprolol Succinate (Toprol Xl -) 50 mg PO DAILY [facility] Last Admin: 05/11/20 09:27 Dose: Not Given Documented by: - Objective Vital Signs: Vital Signs Temperature 98.0 F 05/11/20 10:00 Pulse Rate 82 05/11/20 10:00 Respiratory Rate 18 05/11/20 10:00 Blood Pressure 114/65 05/11/20 10:00 O2 Sat by Pulse Oximetry (%) 99 05/11/20 10:00 General: Well developed. Obese. No acute distress. Head: Normocephalic. Atraumatic, Eyes: PERRLA, EOMI. Sclerae anicteric. Conjunctivae clear. Neck: Supple. No JVD. No bruits. Heart: Normal S1, S2: Regular rhythm and rate. No murmur. No gallop or rub. Lungs: Symmetrical air entry. Clear to auscultation. No crackles. No wheezing or rhonchi. Abdomen: Soft. Bowel sound positive. Non tender. No masses. Extremities: No edema. No clubbing or cyanosis. PD 2+, equal bilaterally. Neuro: Intact, no focal findings. AAO X3. Labs: CBC, BMP 05/11/20 06:48 05/11/20 06:48 Assessment/Plan 49 year-old woman with a PMHx of DM-II and hyperlipidemia presented to ED 05/09/20 with chest pain. The patient complains of sticking pain, felt like squeezing pressure in the deep chest pain with associated palpitaitons. Chest pain improved after acetaminophen administration in the ED. [place] ruled out. ECG 05/09/20 showed sinus rhythm at 100 BPM. Normal axis. Minor non-specific T wave abnormalities of lateral leads. CXR 05/09/20 no acute pathology. Echo 05/10/20: Normal LV size, wall motion and systolic function. LVEF = 65%. RV is not well visualized. Normal LA and RA in size. No significant valvular abnormalities. Nuclear stress stress test 08/10/20 (preliminary) Normal myocardial perfusion and normal LV systolic function. 1) New onset, predominantly exertional angina with risk factors of CAD. Nuclear stress test showed no evidence of stress induced myocardial ischemia. 2) Palpitation with elevated resting heart rate and frequent VPCs. Had unremarkable extended holter monitor in December 2019. Would continue metoprolol succinate 50 mg daily. The patient can be discharge from cardiac stand point. Outpatient cardiac follow up for palpitation. Please do not hesitate to call us for reconsult at any time if any further questions or additional issue arises regarding this patient.
[2020-05-11 15:02] VITALS: BP 100/72; PULSE 92; TEMP 98.3
--- NOTE | 2020-05-11 15:24 | PN ---
Teaching Attending Note Name of Resident: Onelia Garcia ATTENDING PHYSICIAN STATEMENT I saw and evaluated the patient. I reviewed the resident's note and discussed the case with the resident. I agree with the resident's findings and plan as documented. SUBJECTIVE: no fever or chills. No CP today, no SOB. OBJECTIVE: NAD CV: RRR, no MRG Lungs: CTAB Ext : No edema or erythema MS: NT in chest wall ASSESSMENT AND PLAN: 49 y/o lady with h/o DM, and palpitations, who presented with CP 1- CP: negative prelim stress test. echo reviewed. cont asa, statin, and BB. 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 A1c 9 form 10.5 as out pt 3- palpitations. cont toprol dc home .
--- NOTE | 2020-05-11 15:31 | DS ---
Physical Exam: SUBJECTIVE: Patient seen and examined at bedside. No acute events reported overnight. OBJECTIVE: Vital Signs Period Temp Pulse Resp BP Sys/Lomas Pulse Ox Last 24 Hr 97.9 F-98.9 F 80-94 16-19 97-118/65-75 97-100 PHYSICAL EXAM GENERAL: AAOx3, in no acute distress HEENT: NCAT, PERRLA, EOMI, sclera anicteric, conjunctiva clear, oropharynx clear w/o exudates. MMM. NECK: Normal ROM, supple, no lymphadenopathy, JVD, or masses LUNGS: CTABL no wheezes/ rhonchi/ rales. No distress, speaks in full sentences. No increased work of breathing. HEART: RRR, normal S1 S2, no M/R/G, peripheral pulses 2+ and equal b/l ABDOMEN: Soft, NTND, + BS. No guarding or rebound. No hepatomegaly or splenomegaly. MSK: ROM WNL EXTREMITIES: Normal inspection. No peripheral edema. No clubbing or cyanosis. NEUROLOGICAL: CN II-XII intact. Normal speech, normal gait, no focal sensorimotor deficits. SKIN: Warm, Dry, normal turgor, no rashes or lesions noted LABS Laboratory Results - last 24 hr CBC, BMP 05/11/20 06:48 05/11/20 06:48 05/10/20 05/10/20 05/10/20 03:20 06:52 16:34 WBC RBC Hgb Hct MCV MCH MCHC RDW Plt Count MPV Absolute Neuts (auto) Neutrophils % Lymphocytes % Monocytes % Eosinophils % Basophils % Nucleated RBC % Sodium Potassium Chloride Carbon Dioxide Anion Gap BUN Creatinine Est GFR (CKD-EPI)AfAm Est GFR (CKD-EPI)NonAf POC Glucometer 164 Random Glucose Hemoglobin A1c % 9.0 H Calcium Creatine Kinase Troponin I COVID-19 ([facility]) Not detected 05/11/20 05/11/20 05/11/20 06:48 06:48 12:28 WBC 6.9 RBC 4.33 Hgb 12.6 Hct 37.5 MCV 86.5 MCH 29.1 MCHC 33.6 RDW 13.7 Plt Count 213 MPV 9.4 Absolute Neuts (auto) 2.4 Neutrophils % 35.0 L D Lymphocytes % 53.4 H D Monocytes % 9.4 Eosinophils % 1.4 D Basophils % 0.8 Nucleated RBC % 0 Sodium 137 Potassium 3.5 Chloride 104 Carbon Dioxide 26 Anion Gap 7 L BUN 10.1 Creatinine 0.6 Est GFR (CKD-EPI)AfAm 124.92 Est GFR (CKD-EPI)NonAf 107.78 POC Glucometer 274 Random Glucose 185 H Hemoglobin A1c % Calcium 9.4 Creatine Kinase 68 Troponin I < 0.02 COVID-19 ([facility]) HOSPITAL COURSE: 49F w/ PMX of NIDM, HLD BIBA to [facility] for complaint of chest pain that felt like squeezing pressure deep in the chest with associated palpitations. Pain improved after acetaminophen. EKG with no ST abnormalities. Admitted to tele observation for further evaluation of chest pain. Patient had a stress test done which was within normal limits and the patient was discharged for outpatient cardiology follow up with Metoprolol succinate 50 MG DAILY prescribed. Date of Admission:05/10/20 05/09/20-EKG-NSR 05/10/20- CXR-No acute chest pathology. No prior studies for comparison. 05/10/20-Echo- the study was technically difficult. Left ventricle is grossly normal size. Left ventricular systolic function is normal. EF= 65%. RV not well visualized. normal L and R atrial size and function. The aortic valve is not well visualized. No hemodynamically significant valvular aortic stenosis. Mitral valve is grossly normal. 05/11/20- Stress Test- normal exercise stress EKG. Normal myocardial perfusion. normal LV wall motion. LVEF=73% Date of Discharge: 05/11/20 Minutes to complete discharge: 36 Discharge Summary Problems reviewed: Yes Reason For Visit: CHEST PAIN Condition: Improved - Instructions Diet, Activity, Other Instructions: Your visit: You were admitted to the hospital for chest pain. We found no abnormalities of your heart on cardiac stress test. You were treated with medications and fluids with improvement of your symptoms. Medications changes: -We started you on a blood pressure medicine and also for the palpitationsn , Metoprolol Succinate 50 MG ONCE A DAY. -PLEASE STOP TAKING your home medication Metoprolol tartate. -Continue to take all other home medications as prescribed. 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 We have also attached a referral for the coloring room worker you saw here Dr. Lon Perry. - Visit with your Primary Care Provider in 2 weeks. If you do not have a primary care provider you may make an appointment with Dr. Cason at the [facility] clinic located at [facility] ([phone]). Additional Instructions: -You are being discharged to your home. -Please return to the Emergency Department if you experience worsening pain, fevers, chills, shortness of breath, or chest pain, or if you experience any worsening, new or concerning symptoms. Referrals: Kennedy Cason MD [Staff Physician] - Lon Perry MD [Staff Physician] - Disposition: HOME - Home Medications Comprehensive Discharge Medication List: Ambulatory Orders Aspirin 81 mg PO DAILY 05/10/20 Atorvastatin Ca [Lipitor] 20 mg PO HS 05/10/20 Cetirizine HCl [Zyrtec] 10 mg PO DAILY 05/10/20 Liraglutide [Victoza -] 1.8 mg SQ DAILY@0700 05/10/20 Metformin HCl [Glucophage] 1,000 mg PO BID 05/10/20 Metoprolol Succinate [Toprol Xl] 50 mg PO DAILY 30 Days #30 tab.er.[id number] 05/11/20 This patient is new to me today: No Emergency Visit: No Critical Care patient: No - Discharge Referral Referred to [facility] Med P.C.: No ATTENDING PHYSICIAN STATEMENT I saw and evaluated the patient. I reviewed the resident's note and discussed the case with the resident. I agree with the resident's findings and plan as documented. SUBJECTIVE: OBJECTIVE: ASSESSMENT AND PLAN:
== END 2020-05-11 17:30 | disposition home or self-care (01) ==
LOC: JER 22:36 → UNDOADMOB 05-10 02:10 → JERBED 05-10 02:10 → INTOOBSV 05-10 04:16 → OBSVTOIN 05-10 04:16 → JERBED 05-10 10:00 → J4S 05-10 11:40 → JERBED 05-10 11:40 → J4S 05-10 11:40
PROVIDERS: ADMIT Internal Medicine; ATTEND Internal Medicine
PROC: 3E013VG Introduction of Insulin into Subcutaneous Tissue, Percutaneous Approach (ICD-10-PCS; principal; 2020-05-10)
PROC: 3E013GC Introduction of Other Therapeutic Substance into Subcutaneous Tissue, Percutaneous Approach (ICD-10-PCS; 2020-05-10)
DX: R07.89 Other chest pain (principal); E11.9 Type 2 diabetes mellitus without complications; E78.5 Hyperlipidemia, unspecified; E66.9 Obesity, unspecified; Z68.39 Body mass index [BMI] 39.0-39.9, adult; Z79.84 Long term (current) use of oral hypoglycemic drugs; Z79.82 Long term (current) use of aspirin; I20.8 Other forms of angina pectoris; R00.2 Palpitations
CPT/HCPCS: 36415; 71046-TC-FY; 78452-TC; 80048; 80053; 80061; 82550; 82962; 83036; 83721; 83735; 84100; 84443; 84484; 85025; 85379; 93005; 93010; 93017; 93306-TC; 96372; 97161-GP; 99285-25; A9502; G0378; U0003